=== PATIENT | female | born 1980 | race Caucasian/White ===

== ENCOUNTER → 2020-12-11 08:15 | Outpatient (CLI) | payer MEDICARE, SELFPAY ==
--- NOTE | ~2020-12-11 | MM_ITS ---
EXAMINATION: MM screening tim BI w felton HISTORY: Screening mammogram TECHNIQUE: Craniocaudal and mediolateral oblique 3-D tomosynthesis images were obtained and synthetic 2-D images were generated. CAD analysis was submitted and interpreted. COMPARISON: bilateral digital screening mammogram BREAST PARENCHYMAL COMPOSITION: There are scattered areas of fibroglandular density. FINDINGS: There is a new asymmetrical 10 mm opacity in the posterior lower outer left breast (cranioc audal Tomosynthesis image 14/59), without definite correlate on the MLO view. Otherwise there is no evidence of suspicious mass, calcification, or architectural distortion to sugg est malignancy in either breast. There has been no other suspicious interval change. IMPRESSION: 1. 10 mm asymmetric opacity in the posterior outer left breast on cc view; recommend diagnostic left mammogram, with ultrasound if required. 2. Diagnostic left mammogram is recommended, with ultrasound if required BI-RADS Category 0: Incomplete: Needs additional imaging evaluation. Reviewed, dictated and finalized at location A. UST EMISSIONS INSPECTOR IMPRESSION: 1. 10 mm asymmetric opacity in the posterior outer left breast on cc view; lizett mmend diagnostic left mammogram, with ultrasound if required. 2. Diagnostic left mammogram is recommended, with ultrasound if required BI-RADS Category 0: Incomplete: Needs additional imaging evaluation.
== END ==
PROVIDERS: Visit Provider Nurse Practitioner Obstetrics & Gynecology
DX: Z12.31 Encounter for screening mammogram for malignant neoplasm of breast (principal); R92.8 Other abnormal and inconclusive findings on diagnostic imaging of breast
CPT/HCPCS: 77063; 77067

== ENCOUNTER → 2021-01-03 07:48 | Outpatient (CLI) | payer MEDICARE, SELFPAY ==
--- NOTE | ~2021-01-03 | MMUS_ITS ---
EXAMINATION: MM diagnostic mammo unilat LT, US breast LT limited HISTORY: 10 mm asymmetric opacity reported in the posterior outer left breast on screening craniocaud al view of 12/11/2020 TECHNIQUE: Additional 3-D tomosynthesis images of were performed and synthetic 2-D images were genera keven. CAD analysis was submitted and interpreted. High resolution breast ultrasound was performed. COMPARISON: 12/11/2020, 03/22/2019 bilateral digital screening mammogram examinations FINDINGS: MAMMOGRAPHIC FINDINGS: There is an approximately 4.5 x 6.6 x 10 mm indeterminate incompletely circumscribed opacity in the p osterior lower outer left breast. ULTRASOUND: At 3:00 6 cm from the nipple there is a parallel approximately 2.6 x 6 x 7.2 mm sonolucent area witho ut internal vascularity or posterior shadowing. IMPRESSION: 1. Probably benign finding: Asymmetric opacity at 3:00 6 cm from nipple, without internal vascularity or posterior shadowing 2. 6 month diagnostic left mammogram and targeted left breast ultrasound examination are recommended BI-RADS category 3, probably benign findings. Reviewed, dictated and finalized at location A. ID TESTER IMPRESSION: 1. Probably benign finding: Asymmetric opacity at 3:00 6 cm from nipple, withou t internal vascularity or posterior shadowing 2. 6 month diagnostic left mammogram and targeted left breast ultrasound examin ation are recommended BI-RADS category 3, probably benign findings.
== END ==
PROVIDERS: Visit Provider Nurse Practitioner Obstetrics & Gynecology
DX: R92.8 Other abnormal and inconclusive findings on diagnostic imaging of breast (principal)
CPT/HCPCS: 76642; 77065